=== PATIENT | female | born 1995 | race Hispanic/Latino ===

== ENCOUNTER → 2019-04-30 | Outpatient (REF) | payer OTHER | LOC: M SFHCLERA 19:08 | PROVIDERS: ATTEND Nurse Practitioner Family | DX: R50.9 Fever, unspecified (principal) ==

== ENCOUNTER 2019-07-01 10:47 | Emergency (ER) | payer OTHER ==
[~2019-07-01] VITALS: Ht 157.5 cm; Wt 55.3 kg
[2019-07-01 10:48] VITALS: BP 141/87
[2019-07-01] MEDS ORDERED: PROPARACAINE 0.5% OPHTH SOL 15ML OS ONE (11:15)
[2019-07-01] MEDS ORDERED: FLUORESCEIN OPHTH 1 MG STRIP OS ONE (11:15)
[2019-07-01] MEDS ORDERED: POLYSOL OP (11:33)
== END 2019-07-01 11:46 | disposition home or self-care (01) ==
LOC: M ED 10:47
DX: T15.02XA Foreign body in cornea, left eye, initial encounter (principal); W25.XXXA Contact with sharp glass, initial encounter; Y92.89 Other specified places as the place of occurrence of the external cause; Y93.89 Activity, other specified; Y99.0 Civilian activity done for income or pay